=== PATIENT | female | born 1965 | race African-American/Black ===

== ENCOUNTER → 2018-09-15 | Outpatient (CLI) | payer BC ==
--- NOTE | 2018-09-15 08:37 | Diagnostic Imaging Report ---
History: Chronic sinusitis Comparison studies: None Technique: Axial images were obtained through the paranasal sinuses. Coronal and sagittal images reconstructed from the axial data. Dose modulation, iterative reconstruction, and/or weight based adjustment of the mA/kV was utilized to reduce the radiation dose to as low as reasonably achievable. Radiation dose: Total DLP: 251 mGy*cm. Estimated effective dose: DLP x 0.015 Intravenous contrast: None Findings: Paranasal sinuses: The maxillary sinuses, bilateral ethmoid air cells, frontal sinuses and sphenoid sinuses are clear. The bilateral ostiomeatal units, frontoethmoidal recesses and sphenoethmoidal recesses are patent. Other: Nasal vestibule and cavity: Patent Nasal septum: At midline. Agger Nasi: Clear bilaterally. Turbinates: Right middle turbinate phoebe bullosa. Jonathan cells: None Cribriform plates: Shallow configuration of the cribriform plates to the lateral lamella and fovea ethmoidalis bilaterally. Olfactory recesses: Clear Optic canals: Not dehiscent Onodi cells: None Carotid canals: Not dehiscent. Sphenoid sinuses: Dominant left sphenoid sinus. The sphenoid septum inserts posteriorly to the right of midline. Small accessory septum in the left lateral sinus. The lateral recesses are not aerated. Orbits: Chronic mildly depressed left orbital floor fracture. No extraocular muscle herniation or other abnormalities. Bones: Left orbital floor fracture, as above. Temporal bones: No gross abnormalities. IMPRESSION: 1. Clear paranasal sinuses with patent sinus drainage pathways. 2. Chronic left orbital floor fracture. Signed by: Dr. Arnaud Monroy M.D. on 09/15/2018 8:34 AM
== END ==
LOC: CT 07:44
PROVIDERS: ATTEND Otolaryngology
DX: J32.8 Other chronic sinusitis (principal)
CPT/HCPCS: 70486

== ENCOUNTER 2019-03-30 19:27 | Emergency (ER) | payer BC ==
[~2019-03-30] VITALS: Ht 170.2 cm; Wt 117.9 kg
--- OUTSIDE RECORDS SUMMARY | 2019-03-30 19:29 | XMS REPORT ---
Author Author [facility] Address Unknown Phone Unavailable Care Team Providers Care Lease Attendant Name Role Phone RENAY MONTOYA Unavailable Unavailable Problems This patient has no known problems. Allergies, Adverse Reactions, Alerts This patient has no known allergies or adverse reactions. Medications This patient has no known medications. Results Test Description Test Time Test Comments Text Results Atomic Results Result Comments CT MAXIO FAC/PARANAS WO 2018-09-15 08:29:00 [place] [id number] Patient Name: ROBBI VALDES MR #: [id number] : 1965 Age/Sex: 53/F Req #: [id number] Adm Physician: Ordered by: LINDSAY CERRATO, RENAY CERRATO Report #: [id number] Location: CT Room/Bed: Procedure: [id number] CT/CT MAXIO FAC/PARANAS WO Exam Date: 09/15/18 Exam Time: 0810 REPORT STATUS: Signed History: Chronic sinusitis Comparison studies: None Technique: Axial images were obtained through the paranasal sinuses. Coronal and sagittal images reconstructed from the axial data. Dose modulation, iterative reconstruction, and/or weight based adjustment of the mA/kV was utilized to reduce the radiation dose to as low as reasonably achievable. Radiation dose: Total DLP: 251 mGy*cm. Estimated effective dose: DLP x 0.015 Intravenous contrast: None Findings: Paranasal sinuses: The maxillary sinuses, bilateral ethmoid air cells, frontal sinuses and sphenoid sinuses are clear. The bilateral ostiomeatal units, frontoethmoidal recesses and sphenoethmoidal recesses are patent. Other: Nasal vestibule and cavity: Patent Nasal septum: At midline. Agger Nasi: Clear bilaterally. Turbinates: Right middle turbinate phoebe bullosa. Jonathan cells: None Cribriform plates: Shallow configuration of the cribriform plates to the lateral lamella and fovea ethmoidalis bilaterally. Olfactory recesses: Clear Optic canals: Not dehiscent Onodi cells: None Carotid canals: Not dehiscent. Sphenoid sinuses: Dominant left sphenoid sinus. The sphenoid septum inserts posteriorly to the right of midline. Small accessory septum in the left lateral sinus. The lateral recesses are not aerated. Orbits: Chronic mildly depressed left orbital floor fracture. No extraocular muscle herniation or other abnormalities. Bones: Left orbital floor fracture, as above. Temporal bones: No gross abnormalities. IMPRESSION: 1. Clear paranasal sinuses with patent sinus drainage pathways. 2. Chronic left orbital floor fracture. Signed by: Dr. Arabella Monroy M.D. on 09/15/2018 8:34 AM Dictated By: ARABELLA MONROY MD 3 Transcribed By: ANNABELLA on 09/15/18833 COPY TO: RENAY MONTOYA
[2019-03-30 20:35] LABS: CLARITY,URINE SL CLOUDY (CLEAR); COLOR,URINE YELLOW (YELLOW); LEUKOCYTE ESTERASE ,URINE NEGATIVE (NEGATIVE); NITRITE,URINE NEGATIVE (NEGATIVE)
[2019-03-30 20:36] LABS: BILIRUBIN,URINE NEGATIVE (NEGATIVE); KETONES,URINE NEGATIVE (NEGATIVE); PROTEIN,URINE DIPSTICK NEGATIVE (NEGATIVE); URINE UROBILINOGEN 0.2 mg/dL (0.2 - 1)
[2019-03-30 20:47] LABS: EPITHELIAL CELLS,URINE RARE /LPF
[2019-03-30] MEDS ORDERED: KETOROLAC TROMETHAMINE 30 MG/ML VIAL IV NR (21:00)
[2019-03-30] MEDS ORDERED: ONDANSETRON HCL INJ 2MG/ML 2ML 2 MG/ML VIAL IV NR (21:00)
[2019-03-30 21:31] LABS: BASOPHILS % 0.2 % (0.0-1.0); EOSINOPHILS # (AUTO) 0.1 (0.0-0.4); EOSINOPHILS % 1.3 % (0.0-6.0); HEMATOCRIT 41.5 % (34.2-44.1); HEMOGLOBIN 14.5 g/dL (12.0-16.0); LYMPHOCYTES # (AUTO) 1.1 (1.0-3.2); LYMPHOCYTES % 20.2 % (18.0-39.1); MEAN CORPUSCULAR HEMOGLOBIN 30.1 pg (28-32); MEAN CORPUSCULAR HGB CONC 34.9 g/dL (31-35); MEAN CORPUSCULAR VOLUME 86.3 fL (81-99); MONOCYTES # (AUTO) 0.2 (0.2-0.8); MONOCYTES % 4.3 % (4.4-11.3); NEUTROPHILS % 73.6 % (38.7-80.0); PLATELET COUNT 260 x10e3/uL (140-360); RED BLOOD COUNT 4.81 x10e6/uL (3.6-5.1); RED CELL DISTRIBUTION WIDTH 12.9 % (11.7-14.4)
--- NOTE | 2019-03-30 22:42 | Diagnostic Imaging Report ---
EXAM: CT Abdomen and Pelvis WITHOUT contrast INDICATION: ^left flank pain COMPARISON: None. TECHNIQUE: Abdomen and pelvis were scanned utilizing a multidetector helical scanner from the lung base to the pubic symphysis without administration of IV contrast. Absence of intravenous contrast decreases sensitivity for detection of focal lesions and vascular pathology. Coronal and sagittal reformations were obtained. Routine protocol was performed. IV CONTRAST: None ORAL CONTRAST: None COMPLICATIONS: None RADIATION DOSE: Total DLP: 875.8 mGy*cm Estimated effective dose: (DLP x 0.015 x size factor) mSv CTDIvol has been reviewed. It is below the limits set by the Radiation Protocol Committee (RPC). FINDINGS: LINES and TUBES: None. LOWER THORAX: Right middle lobe calcified granuloma. Mild dependent atelectasis. HEPATOBILIARY: Unenhanced liver is unremarkable. No biliary ductal dilation. GALLBLADDER: Calcified gallstone. No wall thickening. SPLEEN: No splenomegaly. PANCREAS: No focal masses or ductal dilatation. ADRENALS: No adrenal nodules KIDNEYS/URETERS: No hydronephrosis. Limited for evaluation of renal parenchyma without intravenous contrast. No stones. GI TRACT: No abnormal distention, wall thickening, or evidence of bowel obstruction. Appendix is normal. Small hiatal hernia. PELVIC ORGANS/BLADDER: Unremarkable. LYMPH NODES: No lymphadenopathy. VESSELS: Unremarkable. PERITONEUM / RETROPERITONEUM: No free air or fluid. BONES: Unremarkable. SOFT TISSUES: Small fat-containing umbilical hernia. IMPRESSION: 1. No nephrolithiasis or evidence of obstructive urolithiasis. 2. Cholelithiasis without CT evidence of cholecystitis. Signed by: Dr. Ho Mathews MD on 03/30/2019 10:39 PM
[2019-03-30] MEDS ORDERED: ONDANSETRON HCL 4 MG ORAL DISINTEGRATING TAB ONE (23:03)
[2019-03-31 00:10] LABS: AMYLASE 64 U/L (25-125); LIPASE 6 U/L (8-78)
[2019-03-31 00:12] LABS: ALANINE AMINOTRANSFERASE 119 IU/L (0-55); ALBUMIN 3.5 g/dL (3.5-5.0); ALBUMIN/GLOBULIN RATIO 0.6 (0.8-2.0); ALKALINE PHOSPHATASE 87 IU/L (40-150); ANION GAP 15.9 mmol/L (8-16); BLOOD UREA NITROGEN 11 mg/dL (7-26); BUN/CREATININE RATIO 13 (6-25); CALCIUM 10.6 mg/dL (8.4-10.2); CARBON DIOXIDE 21 mmol/L (22-29); CHLORIDE 106 mmol/L (98-107); CREATININE, SERUM 0.86 mg/dL (0.57-1.11); EST GLOMERULAR FILTRATION RATE > 60 ML/MIN (60-); GLUCOSE 97 mg/dL (74-118); POTASSIUM 3.9 mmol/L (3.5-5.1); SODIUM 139 mmol/L (136-145)
== END 2019-03-31 01:00 | disposition home or self-care (01) ==
LOC: ER 19:27
DX: R30.0 Dysuria (principal); R11.2 Nausea with vomiting, unspecified; R10.32 Left lower quadrant pain; K80.80 Other cholelithiasis without obstruction; S39.012A Strain of muscle, fascia and tendon of lower back, initial encounter; K21.9 Gastro-esophageal reflux disease without esophagitis
CPT/HCPCS: 36415; 74176; 80053; 81001; 81025; 82150; 83690; 85025; 87086; 96372; 99283; J1885; Q0162

== ENCOUNTER → 2019-12-12 | Outpatient (RCR) | payer BC ==
[~2019-12-12] MED LIST: LINZESS290 MCG PO; PANTOPRAZOLE SO40 MG PO
== END ==
LOC: PT 12-08 10:09
PROVIDERS: ATTEND Specialist
DX: S83.282A Other tear of lateral meniscus, current injury, left knee, initial encounter (principal); M62.81 Muscle weakness (generalized); M25.562 Pain in left knee; M25.462 Effusion, left knee; M25.662 Stiffness of left knee, not elsewhere classified

== ENCOUNTER 2019-12-28 10:00 | Outpatient (RCR) | payer BC | END 2020-01-12 | LOC: PT 10:00 | PROVIDERS: ATTEND Specialist | DX: S83.282D Other tear of lateral meniscus, current injury, left knee, subsequent encounter (principal); M62.81 Muscle weakness (generalized); M25.562 Pain in left knee; M25.462 Effusion, left knee; M25.662 Stiffness of left knee, not elsewhere classified ==

== ENCOUNTER → 2020-02-06 | Outpatient (CLI) | payer BC ==
[~2020-02-06] MED LIST changes: +HYDROXYZINE HCL25 MG PO; +IOPAMIDOL 370 MG/ML 200 ML INFUS..BTL INJ ONE; +SERTRALINE HCL50 MG PO; +SODIUM CHLORIDE 0.9% 50ML 50 ML ONE; +TRAZODONE HCL50 MG PO; +ULTRAM50 MG PO
--- NOTE | 2020-02-06 13:44 | Diagnostic Imaging Report ---
EXAM: CT Abdomen and Pelvis WITH intravenous contrast INDICATION: Upper abdominal pain COMPARISON: CT abdomen and pelvis of 03/30/2019 TECHNIQUE: Abdomen and pelvis were scanned utilizing a multidetector helical scanner from the lung base to the pubic symphysis after administration of IV contrast. Coronal and sagittal reformations were obtained. Routine protocol was performed. Scan was performed during portal venous phase. IV CONTRAST: 100mL of Isovue 370 ORAL CONTRAST: Water RADIATION DOSE: Total DLP: 806 mGy*cm Dose modulation, iterative reconstruction, and/or weight based adjustment of the mA/kV was utilized to reduce the radiation dose to as low as reasonably achievable. FINDINGS: LOWER THORAX: Minimal dependent lower lobe subsegmental atelectasis. No lung base consolidation. HEPATOBILIARY: Diffuse hepatic steatosis. No focal liver lesion. No biliary ductal dilation. Status post cholecystectomy. SPLEEN: No splenomegaly. PANCREAS: No focal masses or ductal dilatation. ADRENALS: No adrenal nodules. KIDNEYS/URETERS: No hydronephrosis, stones, or solid mass lesions. PELVIC ORGANS/BLADDER: Unremarkable. PERITONEUM / RETROPERITONEUM: No free air or fluid. LYMPH NODES: No lymphadenopathy. VESSELS: Unremarkable. GI TRACT: No abnormal bowel thickening. No bowel obstruction. Normal appendix. BONES AND SOFT TISSUES: Unremarkable. IMPRESSION: Diffuse hepatic steatosis. Status post cholecystectomy. Otherwise, no acute findings in the abdomen or pelvis. Signed by: Lucrecia Shannon MD on 02/06/2020 1:40 PM
--- NOTE | 2020-02-07 08:10 | Diagnostic Imaging Report ---
#[id number] - [id number] #BILATERAL DIGITAL DIAGNOSTIC MAMMOGRAM WITH CAD: 02/06/2020 No prior exams were available for comparison. The tissue of both breasts is predominantly fatty. Current study was also evaluated with a Computer Aided Detection (CAD) system. There are benign calcifications in both breasts. There also are benign lymph nodes in both breasts. No significant masses, calcifications, or other findings are seen in either breast. IMPRESSION: BENIGN There is no mammographic evidence of malignancy. A 1 year screening mammogram is recommended. The patient will be notified by letter of the results. MADHU mata/teena:02/06/2020 16:42:33 Section Gang: Pretty LAINEZ(R)(M), [facility] letter sent: Normal Exam Mammogram BI-RADS: 2 Benign
== END ==
LOC: CT 12:05
PROVIDERS: ATTEND Internal Medicine
DX: R10.10 Upper abdominal pain, unspecified (principal); N64.4 Mastodynia
CPT/HCPCS: 74177; 77066; Q9967

== ENCOUNTER → 2020-02-14 | Day surgery (SDC) | payer BC, OTHER ==
[~2020-02-14] MED LIST changes: +FENTANYL CITRATE/PF 100MCG/2 ML INJ ONE; +HYOSCYAMINE 0.125 MG TAB ONE; -IOPAMIDOL 370 MG/ML 200 ML INFUS..BTL INJ ONE; +METOCLOPRAMIDE HCL 10 MG/2ML VIAL ONE; +MIDAZOLAM HCL 2 MG/2 ML VIAL ONE; -SODIUM CHLORIDE 0.9% 50ML 50 ML ONE
[2020-02-14 15:45] VITALS: BP 126/86
--- NOTE | 2020-02-14 16:14 | Operative Report ---
DATE OF PROCEDURE: 02/14/2020 SURGEON: Marcos Fernandes MD PROCEDURE: An EGD with biopsies and esophageal dilatation and colonoscopy with polypectomy INDICATIONS FOR EGD: Dysphagia, acid reflux, bloating. INDICATIONS FOR COLONOSCOPY: Colorectal cancer screening. MEDICATIONS: The patient was done under MAC, please see anesthesiologist's note. PROCEDURE IN DETAIL: With the patient in left lateral decubitus position, a flexible fiberoptic Olympus gastroscope was introduced into the esophagus under direct visualization without any difficulty. There was some patchy erythema noted in distal esophagus. A mild stricture was noted at the GE junction that was dilated to size 52-Tajik Menchaca. The scope was then advanced with ease into the stomach, traversing a moderate-sized hiatal hernia. Mucosa overlying the antrum and the body revealed some patchy erythema and [id number] edema. Biopsies were obtained, sent to stain for H pylori. Pylorus was of normal contour and shape, was intubated with ease and the scope was advanced all the way to the second portion of the duodenum. Biopsies were obtained from the proximal second portion and duodenal bulb to rule out sprue. The scope was then withdrawn back into the stomach and retroflexed mucosa overlying the fundus and cardia appeared to be within normal limits. The scope was then straightened out, it was subsequently withdrawn. The patient tolerated the procedure well. IMPRESSION: 1. Distal esophagitis. 2. Esophagus dilated to size 52-Tajik Menchaca. 3. Moderate-sized hiatal hernia. 4. Gastritis, biopsied. Biopsies sent to stain for H pylori. PLAN: Follow up histology. Initiate Protonix 40 mg one p.o. q.a.m. a.c. The patient was then turned around after adequate lubrication of the anal canal. The flexible fiberoptic Olympus colonoscope was inserted into the rectum with ease and advanced all the way to the cecum. An approximately 1 cm sessile polyp was noted in the cecum and that was removed per hot snare polypectomy and site was hemo-clipped x1. A minute polyp was removed per the cold biopsy forceps. The scope was then withdrawn slowly. One polyp was hot snared from the ascending colon. Two polyps were hot snared from the descending colon. One polyp was hot snared from the sigmoid colon. One polyp was hot snared from the rectum. The scope was then retroflexed into the distal rectum. Small internal hemorrhoids were noted, none of which was actively bleeding. Of note, minimal diverticular disease was noted in the colon. The scope was then straightened out, it was subsequently withdrawn. The patient tolerated procedure well. IMPRESSION: 1. Cecal polyps x2, 1 hot snared, site hemo-clipped x1, and 1 polyp cold biopsied. 2. Ascending colon polyp, hot snared. 3. Descending colon polyps x2, hot snared. 4. Sigmoid colon polyp, x1 hot snared. 5. Rectal polyp x1, hot snared. 6. Internal hemorrhoids, none actively bleeding. PLAN: Follow up histology. Initiate high-fiber, low-fat diet. Initiate high-fiber supplement. The patient might benefit from a followup colonoscopy in 2 to 3 years. Marcos Fernandes MD [facility] /[id number] cc: Regulo Sam MD
== END | disposition home or self-care (01) ==
LOC: OR 11:25
PROVIDERS: ATTEND Internal Medicine Gastroenterology
DX: Z12.11 Encounter for screening for malignant neoplasm of colon (principal); D12.0 Benign neoplasm of cecum; D12.4 Benign neoplasm of descending colon; D12.8 Benign neoplasm of rectum; K29.70 Gastritis, unspecified, without bleeding; K22.2 Esophageal obstruction; K21.9 Gastro-esophageal reflux disease without esophagitis; K20.9 Esophagitis, unspecified; K44.9 Diaphragmatic hernia without obstruction or gangrene; K64.8 Other hemorrhoids; E66.01 Morbid (severe) obesity due to excess calories; R03.0 Elevated blood-pressure reading, without diagnosis of hypertension; F41.9 Anxiety disorder, unspecified; F32.9 Major depressive disorder, single episode, unspecified; Z88.2 Allergy status to sulfonamides; Z01.810 Encounter for preprocedural cardiovascular examination; Z01.812 Encounter for preprocedural laboratory examination; Z11.59 Encounter for screening for other viral diseases; Z68.41 Body mass index [BMI] 40.0-44.9, adult
CPT/HCPCS: 43239; 43450; 45380; 45385; 81025; 93005; J2250; J2765; J3010; U0002

== ENCOUNTER → 2022-05-06 | Outpatient (CLI) | payer OTHER ==
[~2022-05-06] MED LIST changes: -FENTANYL CITRATE/PF 100MCG/2 ML INJ ONE; -HYOSCYAMINE 0.125 MG TAB ONE; -METOCLOPRAMIDE HCL 10 MG/2ML VIAL ONE; -MIDAZOLAM HCL 2 MG/2 ML VIAL ONE
== END ==
LOC: MAMMO 10:06
PROVIDERS: ATTEND Family Medicine
DX: Z12.31 Encounter for screening mammogram for malignant neoplasm of breast (principal)
CPT/HCPCS: 77067